=== PATIENT | female | born 1980 | race Caucasian/White ===

== ENCOUNTER → 2016-11-03 | Outpatient (CLI) | payer BC, OTHER ==
--- NOTE | 2016-11-04 10:53 | US ---
EXAM DESCRIPTION: Soft Tissue, extremity CLINICAL HISTORY: 36 years Female, BENIGN LIPOMATOUS NEOPLASM COMPARISON: None. FINDINGS: Sonographic evaluation of the right axillary region demonstrates no definite enlarged lymph node. Heterogeneous subcutaneous tissue is present. It is either prominent subcutaneous tissue or less likely a elongated benign appearing lipoma within the subcutaneous fat approximately 6 mm in diameter and is much is 2.6 cm in length. The underlying muscular structures are normal in appearance. IMPRESSION: Essentially normal examination with questionable subcutaneous lipoma in the right axillary region. No abnormal adenopathy or soft tissue density masses noted. Electronically signed by: Mauricio Khan MD 11/04/2016 10:52 AM CDT
== END | disposition home or self-care (01) ==
LOC: US 13:16
PROVIDERS: ATTEND Family Medicine
DX: D17.79 Benign lipomatous neoplasm of other sites (principal)

== ENCOUNTER → 2018-10-03 | Outpatient (CLI) | payer BC, OTHER ==
--- NOTE | 2018-10-03 17:41 | MRI ---
EXAM DESCRIPTION: Lumbar Spine w/o Contrast : Magnetic Resonance Imaging. CLINICAL HISTORY: M54.16 M54.5 COMPARISON: LUMBAR TECHNIQUE: Multiplanar, multiple standard sequences, non contrast MRI, lumbar spine. FINDINGS: Shortening bilateral bony pedicles at multiple levels. L5-S1 disc space is identified on T2 axial sequence 701, image 2. L5-S1: Desiccation of the disc with disc space maintained. Left posterior 4 mm disc bulge abutting the exiting left L5 nerve and also the left subarticular recess and the descending left S1 nerve. AP canal diameter 10 mm to the left of midline. Hyperintense T2 annular fissure in the protruding this segment. Moderate to severe left foraminal narrowing and moderate right foraminal narrowing. Facets and ligaments are unremarkable. L4-L5: Disc desiccation with posterior broad-based bulge. Left paracentral broad hyperintense T2 annular fissure with a bulging disc abutting the exiting left L4 nerve. Mild foraminal narrowing. Disc bulge into the right foramen also mildly narrowed. Disc bulge also narrowing the left subarticular recess abutting the descending left L5 nerve. AP canal diameter 11 mm. L3-L4: Minimal disc desiccation and anterior. Disc space maintained with no bulging. AP canal diameter 11 mm with narrowing of the transverse diameter as well and flavum ligament hypertrophy. L2-L3: Normal signal in the disc with disc space preserved. Hypertrophy of the posterior flavum ligaments and minimal facet hypertrophy resulting in narrowing of the transverse diameter of the canal with AP canal 12 mm. Bilateral foramina are patent. L1-L2: Minimal disc desiccation with disc space preserved. No posterior bulging. Minimal hypertrophy of the posterior ligaments with narrowing of the transverse diameter but no stenosis in the AP axis. Bilateral foramina are patent. Conus terminates at L1. T12-L1: Normal signal in the disc with disc space preserved. Posterior elements unremarkable. Canal and foramina are patent. No scoliosis. Paravertebral soft tissues are unremarkable. Normal marrow signal in the remaining vertebral bodies and the posterior elements. Vertebral bodies are not compressed at any level. IMPRESSION: 1. Left posterior protrusion of the L5-S1 disc with annular fissure abutting the exiting left L5 nerve in the foramen and the descending left S1 nerve in the subarticular recess. 2. Left posterior protrusion of the L4-L5 disc with annular fissure abutting the exiting left L4 nerve in the foramen and the descending left L5 nerve in the left subarticular recess. 3. Canal is narrowed at multiple levels more transverse than AP, secondary to hypertrophied flavum ligaments and bony morphology of the canal, mainly pedicle length. Electronically signed by: Aime Joel MD 10/03/2018 5:38 PM CDT
== END ==
LOC: MRI 08:43
PROVIDERS: ATTEND Family Medicine
DX: M51.16 Intervertebral disc disorders with radiculopathy, lumbar region (principal); M51.17 Intervertebral disc disorders with radiculopathy, lumbosacral region

== ENCOUNTER → 2018-10-09 | Outpatient (CLI) | payer BC, OTHER ==
--- NOTE | 2018-10-09 10:15 | CT ---
EXAM DESCRIPTION: Abdoment/Pelvis w/o Contrast CLINICAL HISTORY: 37 years, Female, RUQ PAIN COMPARISON: Previous CT abdomen and pelvis February 21, 2015 TECHNIQUE: CT of the abdomen and pelvis is performed according to our non contrast protocol. FINDINGS: The lung bases are clear. Heart size is normal. Low density liver is consistent with diffuse hepatic steatosis. Higher density area in the posterior right lobe is consistent with a liver mass. On the previous study in January 2015, a similar finding was present. Previous measurement was 3.7 x 3.3 cm. This is larger now measuring 4.8 x 3.8 cm. Another slightly hyperdense lesion in the right lobe slightly more inferiorly measures 1.9 x 1.2 cm. This previously measured 1.8 x 1.4 cm. Partially exophytic lesion in the lateral segment left lobe measures 3 x 2.9 cm. Previously this was larger measuring 5.3 x 5.0 cm. Additional small lesions are seen anterior to the right portal vein and in the medial segment left lobe measuring 2 cm and 1.2 cm respectively. Multiple liver lesions could represent multifocal hepatoma, multiple hemangiomas, multiple hepatic adenomas or multifocal nodular hyperplasia. Metastatic disease or hepatic lymphoma might be considered in the appropriate clinical setting. Patient had a sonogram February 13, 2015 which showed hypoechoic lesions in the liver which would argue against hemangiomas. Earlier CT abdomen without contrast April 27, 2013 also showed multiple liver lesions. Correlate with previous biopsy or MRI results if available. Spleen and pancreas are unremarkable. Adrenal glands appear normal. The right kidney is unremarkable. The left kidney is unremarkable. No renal stones or hydronephrosis. Small bowel loops appear normal in caliber with normal wall thickness. There is no lymphadenopathy, inflammation, or free fluid observed. In the pelvis, the appendix is normal. No inflammation around the cecum or terminal ileum or sigmoid colon. No stones in the distal ureters or bladder. Rectal wall thickness is normal for degree of distention. No free fluid or mass in the pelvis. Uterus appears normal. No ovarian enlargement. No inguinal or lower pelvic adenopathy. Coronal and sagittal reformatted images confirm the findings. IMPRESSION: Diffuse hepatic steatosis with multiple liver lesions. The largest in the left lobe is smaller in size. The largest in the posterior right lobe is larger in size. Correlate with previous biopsy results or previous MRI if available. This exam was performed according to our departmental dose-optimization program, which includes automated exposure control, adjustment of the mA and/or kV according to patient size and/or use of iterative reconstruction technique. Total DLP equals 1396.58 mGycm. Electronically signed by: Duncan Rosales MD 10/09/2018 10:12 AM CDT
== END ==
LOC: CT 09:00
PROVIDERS: ATTEND Family Medicine
DX: R10.11 Right upper quadrant pain (principal); K76.0 Fatty (change of) liver, not elsewhere classified; R93.2 Abnormal findings on diagnostic imaging of liver and biliary tract; R19.7 Diarrhea, unspecified

== ENCOUNTER → 2020-02-25 | Outpatient (CLI) | payer BC | LOC: GMAM 10:47 | PROVIDERS: ATTEND Family Medicine | DX: F32.1 Major depressive disorder, single episode, moderate (principal) ==